=== PATIENT | male | born 2000 | race Hispanic/Latino ===

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

== ENCOUNTER 2021-05-20 09:35 | Emergency (ER) | payer BC, OTHER, SELFPAY | END 2021-05-20 10:00 | disposition home or self-care (01) | LOC: NAV ERS 09:35 | DX: K52.9 Noninfective gastroenteritis and colitis, unspecified (principal); J45.909 Unspecified asthma, uncomplicated | CPT/HCPCS: 99283 ==

== ENCOUNTER 2022-07-30 17:06 | Emergency (ER) | payer OTHER, SELFPAY | END 2022-07-30 17:42 | disposition home or self-care (01) | LOC: NAV ERS 17:06 | DX: R19.7 Diarrhea, unspecified (principal) | CPT/HCPCS: 99283 ==

== ENCOUNTER 2022-11-06 15:28 | Emergency (ER) | payer OTHER ==
[2022-11-06] MEDS ORDERED: Ondansetron ODT 4 MG TAB ONE (16:12)
[2022-11-06] MEDS ORDERED: Ibuprofen 800 MG TAB ONE (16:13)
== END 2022-11-06 16:23 | disposition home or self-care (01) ==
LOC: NAV ERS 15:28
DX: B34.9 Viral infection, unspecified (principal); Z20.822 Contact with and (suspected) exposure to COVID-19
CPT/HCPCS: 87635; 99283; Q0162

== ENCOUNTER 2023-05-12 08:50 | Emergency (ER) | payer OTHER ==
[2023-05-12 22:40] LABS: SARS-CoV-2 N1 Negative; SARS-CoV-2 N2 Negative; SARS-CoV-2 RNAse P1 Positive; SARS-CoV-2 RNAse P2 Positive
== END 2023-05-12 09:23 | disposition home or self-care (01) ==
LOC: NAV ERS 08:50
DX: B34.9 Viral infection, unspecified (principal)
CPT/HCPCS: 87635; 87804; 99284